=== PATIENT | male | born 1955 | race Caucasian/White ===

== ENCOUNTER 2016-08-16 08:15 | Outpatient (CLI) | payer OTHER, BC, MEDICAID ==
[2015-03-13 01:33] VITALS: O2SAT 95
== END 2016-08-16 08:16 | disposition home or self-care (01) | DRG 554 ==
LOC: CONVCARE 08:15
PROVIDERS: ATTEND Orthopaedic Surgery
DX: M17.2 Bilateral post-traumatic osteoarthritis of knee (principal)
CPT/HCPCS: 73564

== ENCOUNTER 2018-02-05 15:15 | Outpatient (CLI) | payer BC ==
[2015-03-13 01:33] VITALS: O2SAT 95
== END 2018-02-05 15:16 | disposition home or self-care (01) ==
LOC: CONVCARE 15:15
PROVIDERS: ATTEND Orthopaedic Surgery
DX: M21.162 Varus deformity, not elsewhere classified, left knee (principal)
CPT/HCPCS: 73564

== ENCOUNTER 2018-02-26 05:33 | Inpatient (IN) | payer BC ==
[2018-02-26] MEDS ORDERED: LACTATED RINGERS 1,000 ML IV ONE (06:00)
[2018-02-26] MEDS ORDERED: SCOPOLAMINE 1.5MG PATCH TD SCH (06:00)
[2018-02-26] MEDS ORDERED: LACTATED RINGERS 1,000 ML IV SCH (07:00)
[2018-02-26] MEDS ORDERED: SODIUM CHLORIDE 20 ML 40 ML ONE (07:22)
[2018-02-26] MEDS ORDERED: BUPIVACAINE LIPOSOME 20 ML SUS ONE (07:22)
[2018-02-26] MEDS ORDERED: TETRACAINE HCL 1% SOL ONE (07:27)
[2018-02-26] MEDS ORDERED: MIDAZOLAM 2 MG/2 ML SOL ONE (07:31)
[2018-02-26] MEDS ORDERED: PROPOFOL 500 MG/50 ML EMU IV ONE (07:31)
[2018-02-26] MEDS ORDERED: ONDANSETRON HCL 4 MG/2 ML SOL ONE ×2 (07:31→18:12)
[2018-02-26] MEDS ORDERED: MORPHINE SULFATE 0.5 MG/ML SOL ONE (07:31)
[2018-02-26] MEDS ORDERED: DEXAMETHASONE 20 MG/5 ML (4 MG/ML SOL) ONE (07:31)
[2018-02-26] MEDS ORDERED: CEFAZOLIN SODIUM 1 GM PDS IV ONE (08:32)
[2018-02-26] MEDS: LISINOPRIL 20 MG TAB PO SCH (11:19)
[2018-02-26] MEDS ORDERED: ONDANSETRON HCL 4 MG/2 ML SOL IV PRN (17:59)
[2018-02-26] MEDS: SODIUM CHLORIDE 0.9% FLUSH 10 ML SOL IV SCH (18:18)
[2018-02-26] MEDS ORDERED: MORPHINE SULFATE 10 MG/ML SOL IV PRN (18:26)
[2018-02-26 19:06] LABS: ALBUMIN 3.2 gm/dl (3.4-5.0); ALKALINE PHOSPHATASE 69 IU/L (46-116); ALT 21 IU/L (14-63); AST 16 IU/L (15-37); BILIRUBIN,TOTAL 0.3 mg/dl (0.2-1.0); BLOOD UREA NITROGEN 17 mg/dl (7-18); CALCIUM 8.6 mg/dl (8.5-10.1); CARBON DIOXIDE 28.4 mEq/L (21-32); CHLORIDE 103 mMol/L (98-107); CREATININE 0.99 mg/dl (0.80-1.30); GLUCOSE 131 mg/dl (74-106); POTASSIUM 3.9 mMol/L (3.5-5.1); SODIUM 140 mMol/L (136-145); TROP I < 0.017 ng/ml (0.000-0.056)
[2018-02-26 19:20] LABS: BASOPHILS % (AUTO) 0 % (0-3); EOSINOPHILS % (AUTO) 0 % (0-9); HEMATOCRIT 39 % (39-53); HEMOGLOBIN 12.9 gm/dl (13.5-17.7); LYMPHOCYTES % (AUTO) 9.9 % (10-50); MEAN CORPUSCULAR HEMOGLOBIN 30.8 pg (27.0-32.0); MEAN CORPUSCULAR HGB CONC 32.7 gm/dl (32.0-36.0); MEAN CORPUSCULAR VOLUME 94 fL (80-100); MONOCYTES % (AUTO) 4.6 % (0-12)
[2018-02-27] MEDS: SODIUM CHLORIDE 0.9% FLUSH 10 ML SOL IV SCH ×5 (03:00→19:42)
[2018-02-27] MEDS ORDERED: LACTATED RINGERS 1,000 ML IV ONE ×2 (05:30)
[2018-02-27] MEDS ORDERED: SCOPOLAMINE 1.5MG PATCH TD SCH ×2 (05:30)
[2018-02-27] MEDS ORDERED: SODIUM CHLORIDE 20 ML 20 ML ONE (06:25)
[2018-02-27] MEDS ORDERED: LACTATED RINGERS 1,000 ML IV SCH (06:30)
[2018-02-27] MEDS ORDERED: PROPOFOL 500 MG/50 ML EMU IV ONE ×3 (06:47→09:43)
[2018-02-27] MEDS ORDERED: ONDANSETRON HCL 4 MG/2 ML SOL ONE (06:47)
[2018-02-27] MEDS ORDERED: CEFAZOLIN SODIUM 1 GM PDS ONE ×3 (06:47→14:51)
[2018-02-27] MEDS ORDERED: MIDAZOLAM 2 MG/2 ML SOL ONE ×2 (06:47→08:54)
[2018-02-27] MEDS ORDERED: DEXAMETHASONE 20 MG/5 ML (4 MG/ML SOL) ONE (06:47)
[2018-02-27] MEDS ORDERED: FENTANYL 100MCG/2ML SOL ONE ×2 (06:48→11:30)
[2018-02-27] MEDS ORDERED: TETRACAINE HCL 1% SOL ONE (06:56)
[2018-02-27] MEDS: LACTATED RINGERS 1,000 ML IV SCH (07:04)
[2018-02-27] MEDS: TRANEXAMIC ACID 100 MG/ML SOL ONE ×2 (08:14→11:07)
[2018-02-27] MEDS ORDERED: TRANEXAMIC ACID 100 MG/ML SOL ONE (08:20)
[2018-02-27] MEDS ORDERED: KETAMINE HYDROCHLORIDE 50 MG/ML SOL ONE (09:25)
[2018-02-27] MEDS: BUPIVACAINE LIPOSOME 20 ML SUS ONE ×3 (09:43→10:58)
[2018-02-27] MEDS ORDERED: GLYCOPYRROLATE 0.2 MG/ML SOL ONE (09:43)
[2018-02-27] MEDS ORDERED: PROPOFOL 10 MG/ML 200 MG/20 ML EMU IV ONE ×2 (10:30→11:08)
[2018-02-27] MEDS ORDERED: FLEET ENEMA PR PRN (11:05)
[2018-02-27] MEDS ORDERED: SODIUM CHLORIDE 0.9% 500 ML 500 ML IV PRN (11:05)
[2018-02-27] MEDS ORDERED: ONDANSETRON HCL 4 MG/2 ML SOL IV PRN (11:05)
[2018-02-27] MEDS ORDERED: ONDANSETRON 4 MG ODT BU PRN (11:05)
[2018-02-27] MEDS ORDERED: BISACODYL 10 MG SUP PR PRN (11:05)
[2018-02-27] MEDS ORDERED: MORPHINE SULFATE 10 MG/ML SOL IM PRN (11:05)
[2018-02-27] MEDS ORDERED: DIPHENHYDRAMINE 25 MG CAP PO PRN (11:05)
[2018-02-27] MEDS ORDERED: ALUMINUM/MAGNESIUM 30 ML SUS PO PRN (11:05)
[2018-02-27] MEDS ORDERED: TEMAZEPAM 15MG 15 MG CAP PO PRN (11:05)
[2018-02-27] MEDS ORDERED: BUPIVACAINE/EPI 0.25% 50 ML SOL ONE (11:37)
[2018-02-27] MEDS ORDERED: HYDROMORPHONE 1 MG/ML SYRINGE ONE ×2 (12:19→17:36)
[2018-02-27] MEDS: DEXTROSE/SALINE 0.45% 1,000 ML IV SCH (13:09)
[2018-02-27] MEDS: LISINOPRIL 20 MG TAB PO SCH (13:09)
[2018-02-27] MEDS: ACETAMINOPHEN 500 MG 500 MG TAB PO SCH ×3 (13:10→20:13)
[2018-02-27] MEDS: OXYCODONE HYDROCHLORIDE 5 MG TAB PO PRN ×3 (13:26→19:23)
[2018-02-27] MEDS: DIAZEPAM 5 MG TAB PO PRN ×2 (14:24→20:11)
[2018-02-27] MEDS: CEFAZOLIN SODIUM 1 GM PDS 2 GM in SODIUM CHLORIDE 0.9% 100 ML 100 ML IV SCH (15:53)
[2018-02-27] MEDS ORDERED: MORPHINE SULFATE 10 MG/ML SOL ONE (15:56)
[2018-02-27] MEDS ORDERED: OXYCODONE HYDROCHLORIDE 5 MG TAB ONE ×2 (16:36→19:22)
[2018-02-27] MEDS ORDERED: ACETAMINOPHEN 500 MG 500 MG TAB ONE (16:36)
[2018-02-27] MEDS ORDERED: HYDROMORPHONE 1 MG/ML SYRINGE IV PRN (17:32)
[2018-02-27] MEDS ORDERED: DIAZEPAM 5 MG TAB ONE (20:09)
[2018-02-27] MEDS: SENNOSIDES A AND B 8.6 MG TAB PO SCH (20:14)
[2018-02-27] MEDS: ROPINIROLE HCL 0.25 MG PO SCH (20:14)
[2018-02-27] MEDS ORDERED: NALOXONE HYDROCHLORIDE 0.4 MG/ML SOL IV PRN (20:20)
[2018-02-27] MEDS ORDERED: [UNRECOGNIZED DRUG - OTHER] IV PRN (20:45)
[2018-02-28] MEDS: DEXTROSE/SALINE 0.45% 1,000 ML IV SCH
[2018-02-28] MEDS ORDERED: CEFAZOLIN SODIUM 1 GM PDS ONE (00:10)
[2018-02-28] MEDS ORDERED: SODIUM CHLORIDE 0.9% 100 ML 100 ML IV ONE (00:10)
[2018-02-28] MEDS: CEFAZOLIN SODIUM 1 GM PDS 2 GM in SODIUM CHLORIDE 0.9% 100 ML 100 ML IV SCH (00:26)
[2018-02-28] MEDS: HYDROMORPHONE 1 MG/ML SYRINGE IV SCH ×2 (02:20→03:26)
[2018-02-28] MEDS: SODIUM CHLORIDE 0.9% FLUSH 10 ML SOL IV SCH ×6 (03:20→21:15)
[2018-02-28] MEDS ORDERED: HYDROMORPHONE HCL 2 MG/ML SOL IV PRN (05:04)
[2018-02-28] MEDS ORDERED: HYDROMORPHONE 1 MG/ML SYRINGE ONE (05:26)
[2018-02-28] MEDS: DIAZEPAM 5 MG TAB PO PRN ×3 (07:36→21:15)
[2018-02-28 07:53] LABS: HEMOGLOBIN 11.7 gm/dl (13.5-17.7); MEAN CORPUSCULAR HEMOGLOBIN 30.3 pg (27.0-32.0); MEAN CORPUSCULAR HGB CONC 32.2 gm/dl (32.0-36.0)
[2018-02-28] MEDS: HYDROMORPHONE HYDROCHLORIDE 2 MG TAB PO PRN ×10 (08:30→23:52)
[2018-02-28] MEDS: ACETAMINOPHEN 500 MG 500 MG TAB PO SCH ×4 (09:07→21:16)
[2018-02-28] MEDS: LISINOPRIL 20 MG TAB PO SCH (09:08)
[2018-02-28] MEDS: RIVAROXABAN 10 MG TAB PO SCH (09:08)
[2018-02-28] MEDS ORDERED: HYDROMORPHONE HYDROCHLORIDE 2 MG TAB PO ONE ×3 (20:55→23:49)
[2018-02-28] MEDS ORDERED: DIAZEPAM 5 MG TAB ONE (21:12)
[2018-02-28] MEDS: ROPINIROLE HCL 0.25 MG PO SCH (21:16)
[2018-02-28] MEDS: SENNOSIDES A AND B 8.6 MG TAB PO SCH (21:17)
[2018-02-28] MEDS ORDERED: TEMAZEPAM 15MG 15 MG CAP ONE (23:50)
[2018-03-01] MEDS ORDERED: HYDROMORPHONE HYDROCHLORIDE 2 MG TAB PO ONE ×3 (01:11→05:42)
[2018-03-01] MEDS: HYDROMORPHONE HYDROCHLORIDE 2 MG TAB PO PRN ×13 (01:16→22:58)
[2018-03-01] MEDS: LACTATED RINGERS 1,000 ML IV SCH (03:19)
[2018-03-01] MEDS: DEXTROSE/SALINE 0.45% 1,000 ML IV SCH (03:19)
[2018-03-01] MEDS: SODIUM CHLORIDE 0.9% FLUSH 10 ML SOL IV SCH ×4 (03:37→13:08)
[2018-03-01] MEDS ORDERED: DIAZEPAM 5 MG TAB ONE (05:42)
[2018-03-01] MEDS: DIAZEPAM 5 MG TAB PO PRN ×2 (05:44→18:01)
[2018-03-01 08:04] LABS: HEMOGLOBIN 11.5 gm/dl (13.5-17.7); MEAN CORPUSCULAR HGB CONC 33.4 gm/dl (32.0-36.0)
[2018-03-01] MEDS: ACETAMINOPHEN 500 MG 500 MG TAB PO SCH ×4 (08:32→21:21)
[2018-03-01] MEDS: RIVAROXABAN 10 MG TAB PO SCH (08:33)
[2018-03-01] MEDS: LISINOPRIL 20 MG TAB PO SCH (08:33)
[2018-03-01] MEDS: MAGNESIUM HYDROXIDE 30 ML SUS PO PRN (15:29)
[2018-03-01] MEDS: SENNOSIDES A AND B 8.6 MG TAB PO SCH (21:21)
[2018-03-01] MEDS: ROPINIROLE HCL 0.25 MG PO SCH (21:25)
[2018-03-02] MEDS: HYDROMORPHONE HYDROCHLORIDE 2 MG TAB PO PRN ×8 (01:25→21:39)
[2018-03-02] MEDS: SODIUM CHLORIDE 0.9% FLUSH 10 ML SOL IV SCH ×3 (02:59→06:55)
[2018-03-02 07:27] LABS: HEMOGLOBIN 10.3 gm/dl (13.5-17.7); MEAN CORPUSCULAR HEMOGLOBIN 30.7 pg (27.0-32.0); MEAN CORPUSCULAR HGB CONC 32.7 gm/dl (32.0-36.0)
[2018-03-02] MEDS: DIAZEPAM 5 MG TAB PO PRN ×2 (08:49→14:19)
[2018-03-02] MEDS: LISINOPRIL 20 MG TAB PO SCH (08:49)
[2018-03-02] MEDS: ACETAMINOPHEN 500 MG 500 MG TAB PO SCH ×4 (08:49→21:38)
[2018-03-02] MEDS: MAGNESIUM HYDROXIDE 30 ML SUS PO PRN (08:49)
[2018-03-02] MEDS: RIVAROXABAN 10 MG TAB PO SCH (08:50)
[2018-03-02] MEDS: GABAPENTIN 300 MG CAP PO SCH ×3 (12:12→23:11)
[2018-03-02] MEDS: SENNOSIDES A AND B 8.6 MG TAB PO SCH (21:38)
[2018-03-02] MEDS: ROPINIROLE HCL 0.25 MG PO SCH (21:39)
[2018-03-03] MEDS: DIAZEPAM 5 MG TAB PO PRN (01:36)
[2018-03-03] MEDS ORDERED: HYDROMORPHONE HYDROCHLORIDE 2 MG TAB PO ONE (04:19)
[2018-03-03] MEDS: HYDROMORPHONE HYDROCHLORIDE 2 MG TAB PO PRN ×10 (04:22→21:08)
[2018-03-03] MEDS ORDERED: GABAPENTIN 300 MG CAP ONE (08:32)
[2018-03-03] MEDS: RIVAROXABAN 10 MG TAB PO SCH (08:40)
[2018-03-03] MEDS: GABAPENTIN 300 MG CAP PO SCH ×3 (08:41→20:08)
[2018-03-03] MEDS: ACETAMINOPHEN 500 MG 500 MG TAB PO SCH ×4 (08:50→21:17)
[2018-03-03] MEDS: LISINOPRIL 20 MG TAB PO SCH (10:36)
[2018-03-03] MEDS: SENNOSIDES A AND B 8.6 MG TAB PO SCH (20:08)
[2018-03-03] MEDS: ROPINIROLE HCL 0.25 MG PO SCH (20:09)
[2018-03-04] MEDS: HYDROMORPHONE HYDROCHLORIDE 2 MG TAB PO PRN ×9 (00:20→20:11)
[2018-03-04] MEDS: LISINOPRIL 20 MG TAB PO SCH (08:17)
[2018-03-04] MEDS: ACETAMINOPHEN 500 MG 500 MG TAB PO SCH ×4 (08:19→20:07)
[2018-03-04] MEDS: GABAPENTIN 300 MG CAP PO SCH ×3 (08:19→20:07)
[2018-03-04] MEDS: RIVAROXABAN 10 MG TAB PO SCH (08:19)
[2018-03-04] MEDS ORDERED: HYDROMORPHONE HYDROCHLORIDE 2 MG TAB PO ONE ×6 (08:51→17:06)
[2018-03-04] MEDS ORDERED: OXYCODONE HYDROCHLORIDE 10 MG TER ONE (09:51)
[2018-03-04] MEDS: OXYCODONE HYDROCHLORIDE 10 MG TER PO SCH ×2 (09:52→21:06)
[2018-03-04] MEDS: ROPINIROLE HCL 0.25 MG PO SCH (20:07)
[2018-03-04] MEDS: SENNOSIDES A AND B 8.6 MG TAB PO SCH (20:09)
[2018-03-05] MEDS: HYDROMORPHONE HYDROCHLORIDE 2 MG TAB PO PRN ×6 (00:07→17:01)
[2018-03-05] MEDS ORDERED: HYDROMORPHONE HYDROCHLORIDE 2 MG TAB PO ONE ×3 (09:10→16:47)
[2018-03-05] MEDS ORDERED: OXYCODONE HYDROCHLORIDE 10 MG TER ONE ×2 (09:11→18:48)
[2018-03-05] MEDS: LISINOPRIL 20 MG TAB PO SCH (09:15)
[2018-03-05] MEDS: ACETAMINOPHEN 500 MG 500 MG TAB PO SCH ×3 (09:19→17:01)
[2018-03-05] MEDS: RIVAROXABAN 10 MG TAB PO SCH (09:31)
[2018-03-05] MEDS: GABAPENTIN 300 MG CAP PO SCH ×2 (09:31→14:27)
[2018-03-05] MEDS: OXYCODONE HYDROCHLORIDE 10 MG TER PO SCH ×2 (09:32→18:50)
[2018-03-05] MEDS ORDERED: ACETAMINOPHEN 500 MG 500 MG TAB ONE ×2 (12:59→16:48)
[2018-03-05] MEDS ORDERED: GABAPENTIN 300 MG CAP ONE (14:26)
[2018-03-05 18:30] VITALS: BP 131/72; PULSE 80; RESP 14; TEMP 98.1; O2SAT 95
== END 2018-03-05 19:06 | disposition home health service (06) | DRG 302 ==
LOC: ACUTE CARE 05:33
PROVIDERS: ADMIT Orthopaedic Surgery; ATTEND Orthopaedic Surgery
PROC: 0SRC0J9 Replacement of Right Knee Joint with Synthetic Substitute, Cemented, Open Approach (ICD-10-PCS; 2018-02-27)
PROC: F01L5YZ Range of Motion and Joint Integrity Assessment of Musculoskeletal System - Lower Back / Lower Extremity using Other Equipment (ICD-10-PCS; 2018-02-27)
PROC: F01ZBFZ Bed Mobility Assessment using Assistive, Adaptive, Supportive or Protective Equipment (ICD-10-PCS; 2018-02-27)
PROC: 0SRD0J9 Replacement of Left Knee Joint with Synthetic Substitute, Cemented, Open Approach (ICD-10-PCS; principal; 2018-02-27 07:30)
PROC: F02Z3ZZ Grooming/Personal Hygiene Assessment (ICD-10-PCS; 2018-02-28)
PROC: F02Z0ZZ Bathing/Showering Assessment (ICD-10-PCS; 2018-02-28)
DX: M17.0 Bilateral primary osteoarthritis of knee (principal); G47.33 Obstructive sleep apnea (adult) (pediatric); H53.9 Unspecified visual disturbance; R51 Headache; R06.02 Shortness of breath; I10 Essential (primary) hypertension; Z96.653 Presence of artificial knee joint, bilateral; M25.562 Pain in left knee; M25.561 Pain in right knee
CPT/HCPCS: 36415; 51798; 71046; 73560; 80053; 84484; 85025; 85027; 85378; 93005; 94150; 94762; 99070; J0690; J1100; J2250; J2270; J2274; J2405; J3010; J7643; A6232; A9270-GY; J1170; J2704; J3490; Q3014

== ENCOUNTER 2018-04-16 15:35 | Outpatient (CLI) | payer BC ==
[2018-02-27 12:48] VITALS: O2SAT 94
== END 2018-04-16 15:36 | disposition home or self-care (01) ==
LOC: CONVCARE 15:35
PROVIDERS: ATTEND Orthopaedic Surgery
DX: Z96.653 Presence of artificial knee joint, bilateral (principal)
CPT/HCPCS: 73562